=== PATIENT | male | born 1980 | race Caucasian/White ===

== ENCOUNTER 2023-04-02 14:23 | Emergency (ER) | payer OTHER ==
--- NOTE | 2023-04-02 14:47 | RAD REPORT ---
EXAM DESCRIPTION: RAD - Chest Single View - 04/02/2023 2:42 pm CLINICAL HISTORY: COUGH Chest pain. COMPARISON: <Comparisons> FINDINGS: Portable technique limits examination quality. The lungs are grossly clear. The heart is normal in size. No displaced fractures. IMPRESSION: No acute intrathoracic process suspected.
--- OUTSIDE RECORDS SUMMARY | 2023-04-02 14:51 | XMS REPORT | Continuity of Care Document ---
:1980 Author Organization [facility] t Address [address] [facility] [place] [address] Care Team Providers Name Role Phone Pcp, Patient Does Not Have A Primary Care Physician [phone] Doctor Unassigned, [place] Attending Clinician Unavailable Only, Ang Db Test Attending Clinician Unavailable Lorie Morales MD Attending Clinician LUCINDA PARKER Attending Clinician Unavailable Problems Condition Condition Condition Status Onset Resolution Last Treating Co mments Source Name Details Category Date Date Treatment Clinician Date No known No known Disease Unive rs active active ity of problems problems [facility] Allergies, Adverse Reactions, Alerts Allergy Allergy Status Severity Reaction(s) Onset Inactive Treating Comm ents Source Name Type Date Date Clinician NO KNOWN [facility]ergy Active [facility] Social History Social Habit Start Date Stop Date Quantity Comments Source Exposure to Not sure University of SARS-CoV-2 [facility] (event) Branch History of Smokes tobacco [facility] use daily [facility] Tobacco use and 2021-02-23 2021-02-23 Smokeless [address] [facility] exposure [facility]:00:00 non-user [facility] Center Alcohol intake 2021-02-23 2021-02-23 Ex-drinker [facility] 00:[facility]00 00:00:00 (finding) [facility] [place] Alcohol Comment 2021-02-23 2021-02-[address] [facility] 00:00:00 [facility]00 [facility] Center Sex Assigned At [birth year] [facility] 00:[facility]00 [facility] Center Smoking Status Start Date Stop Date Source Never smoker [facility] Smokes tobacco daily 2021-02-23 00:00:00 [facility] Medications Ordered Filled Start Stop Current Ordering Indication Dosage Frequency Signature Comments Components Source Medication Medication Date Date Medication? Clinician (SIG) Name Name Sulfacetami 2013-10 Yes [id number] Apply to Univers de 0-24 area(s) 2 ity of Sodium-Sulf 00:00: (two) [place] ur 00 times Medical (PLEXION) daily. Branch 10-5 % (w/w) Clsr adapalene 2013-10 Yes [id number] Apply to Univers (DIFFERIN) 0-24 affected ity o f 0.1 % cream 00:00: area(s) [place] 00 every Medical evening. Branch clindamycin 2013-10 Yes [id number] Apply to Univers (CLEOCIN T) 0-24 affected ity of 1 % 00:00: area(s) 2 [place] solution 00 (two) Medical times Branch daily. Sulfacetami 2013-10 Yes [id number] Apply to Univers de 0-24 area(s) 2 ity of Sodium-Sulf 00:00: (two) [place] ur 00 times Medical (PLEXION) daily. Branch 10-5 % (w/w) Clsr adapalene 2013-10 Yes [id number] Apply to Univers (DIFFERIN) 0-24 affected ity o f 0.1 % cream 00:00: area(s) [place] 00 every Medical evening. Branch clindamycin 2013-10 Yes [id number] Apply to Univers (CLEOCIN T) 0-24 affected ity of 1 % 00:00: area(s) 2 [place] solution 00 (two) Medical times Branch daily. clindamycin Yes [id number] Apply to Univers -tretinoin 08 area(s) at ity of (ZIANA) gel 00:00: bedtime. x[place] Medical Branch doxycycline Yes [id number] 100mg Take 1 Tab Univers (AVIDOXY) 07-06 by mouth 2 ity of 100 mg 00:00: (two) [place] tablet 00 times Medical daily. Branch clindamycin Yes [id number] Apply to Univers -tretinoin 07-06 area(s) at ity of (ZIANA) gel 00:00: [place]time. [place] 00 [facility] doxycycline Yes [id number] 100mg Take 1 Tab Univers (AVIDOXY) 07-06 by mouth 2 ity of 100 mg 00:00: (two) [place] tablet 00 times Medical daily. Branch clindamycin Yes [id number] Apply to Univers (CLEOCIN T) 7-30 face, back it y of 1 % lotion 00:00: and chest [place] 00 QAM Medical Branch clindamycin Yes [id number] Apply to Univers (CLEOCIN T) 7-30 face, back it y of 1 % lotion 00:00: and chest [place] 00 QAM Medical Branch Vital Signs Vital Name Observation Time Observation Value Comments Source HEIGHT 2021-02-23 11:59:00 182.9 cm WEIGHT 2021-02-23 11:59:00 88.451 kg HEIGHT 2021-02-23 11:59:00 182.9 cm WEIGHT 2021-02-23 11:59:00 88.451 kg Procedures Procedure Date / Time Performing Clinician Source Performed AUTHORIZATION FOR 2022-02-17 05:01:00 Doctor Unassigned, No Univ [facility] RELEASE OF PHI Name Medical Branch Plan of Care Planned Activity Planned Date Details Comments Source Future Scheduled 2023-06-[address] [facility] Test 00:00:00 (Season Ended) [code = [facility] INFLUENZA VACCINE (Season Ended)] Future Scheduled 2022-10-[address] [facility] Test 00:00:00 (12+) [code = [facility] DEPRESSION SCREENING (12+)] Future Scheduled 2022-02-[address] [facility] Test 00:00:00 Counseling and Medical Cent[facility] r Screening (12+) [code = Tobacco Cessation Counseling and Screening (12+)] Future Scheduled [address] [facility] Test 00:00:00 (procedure) [code = [facility] [id number]] Future Scheduled 1999 DTAP/TDAP/TD VACCINES [facility] Test 00:00:00 (1 - Tdap) [code = Medical C enter DTAP/TDAP/TD VACCINES (1 - Tdap)] Future Scheduled 1998 HEPATITIS C SCREENING [facility] Test 00:00:00 [code = HEPATITIS C Medical Center SCREENING] Future Scheduled [address] [facility] Test 00:00:00 0-64 YRS (1 - PCV) Medical C enter [code = PNEUMOCOCCAL VACCINE 0-64 YRS (1 - PCV)] Future Scheduled 1980 COVID-19 VACCINE (#1) [facility] Test 00:00:00 [code = COVID-[address] VACCINE (#1)] Encounters Start End Encounter Admission Attending Care Care Encounter Source Date/Time Date/Time Type Type Clinicians Facility Department ID 2022-02-17 2022-02-17 Orders Doctor KANDACE [id number] Univers 00:00:00 00:00:00 Only Unassigned, TAMERA [id number] ity of [place] [facility] [id number] [place] as [phone] [address] 2021-11-22 2021-11-22 Laboratory Only, Ang Db Test [facility] [id number] [facility] 12:30:00 12:33:59 Only [facility] [id number] ity of [place] [id number] Nico as DAYSI?BLEA [phone] [address] MEDICAL OFFICE BUILDING 2021-02-23 2021-02-23 Emergency ER [facility] Emergency [id number] [facility] 11:39:00 11:39:00 Results Test Description Test Time Test Comments Results Result Comments Source RAPID DRUG SCREEN, URINE 2021-02-23 15:32:00 Test Item Value Reference Range Interpretation Comme nts BARBITURATE URINE (BEAKER) (test code = 725) Negative Negative BENZODIAZEPINE SCREEN URINE (BEAKER) (test code = 726) Positive Negative A COCAINE (METAB.) SCREEN (BEAKER) (test code = 1164) Negative Ne gative METHADONE SCREEN (BEAKER) (test code = 1436) Negative Negative OPIATE SCREEN URINE (BEAKER) (test code = 734) Negative Negativ e CANNABINOID SCREEN URINE (BEAKER) (test code = 727) Negative Ne gative AMPH/METHAMPH SCREEN (BEAKER) (test code = 1438) Negative Negat ashlyn PHENCYCLIDINE SCREEN URINE (BEAKER) (test code = 608) Negative Negative PH UA (BEAKER) (test code = 467) 9.0 5.0-8.0 H DRUG CUTOFF CONC.Cocaine 300 ng/mL Cannabinoid 50 ng/mLBenzodiazepine 200 ng/mLBarbiturate 200 ng/mLPhencyclidine 25 ng/mLOpiate 300 ng/mLMethadone 300 ng/mLAmphetamine/ 1000 ng/mL MethamphetamineThis assay provides an unconfirmed qualitative test result for the clinical management of patients in emergency situations. Chain of custody not maintained. Some ryxm-ezq-wadrhcy medications, as well as adulterants, may cause inaccurate results. Clinical correlation should be applied. A more comprehensivedrug screen or confirmation of a detected drug may be performed upon request.Manager Storage ID - ZMINESALICYLATE [id number] 15:32:00 Test Item Value Reference Range Interpretation Comments SALICYLATE LEVEL (BEAKER) (test code < mg/dL 20.0-30.0 L = 764) Manager Storage ID - ZMINECOMPREHENSIVE METABOLIC [id number] 15:31:00 Test Item Value Reference Range Interpretation Comments TOTAL PROTEIN 7.3 gm/dL 6.0-8.5 (BEAKER) (test code = 770) ALBUMIN (BEAKER) 4.6 g/dL 3.5-5.0 (test code = 1145) ALKALINE PHOSPHATASE 60 U/L 30-115 (BEAKER) (test code = 346) BILIRUBIN TOTAL 0.8 mg/dL 0.1-1.3 (BEAKER) (test code = 377) SODIUM (BEAKER) (test 140 meq/L 135-148 code = 381) POTASSIUM (BEAKER) 4.3 meq/L 3.5-5.5 (test code = 379) CHLORIDE (BEAKER) 104 meq/L 98-106 (test code = 382) CO2 (BEAKER) (test 28 meq/L 20-31 code = 355) BLOOD UREA NITROGEN 17 mg/dL 10-26 (BEAKER) (test code = 354) CREATININE (BEAKER) 1.02 mg/dL 0.50-1.20 (test code = 358) GLUCOSE RANDOM 101 mg/dL 70-110 (BEAKER) (test code = 652) CALCIUM (BEAKER) 9.5 mg/dL 8.5-10.5 (test code = 697) AST (SGOT) (BEAKER) 22 U/L 5-40 (test code = 353) ALT (SGPT) (BEAKER) 33 U/L 6-50 (test code = 347) EGFR (BEAKER) (test 81 mL/min/1.73 ESTIMA CARLOS EDUARDO GFR IS code = 1092) sq m NOT ACCURATE CREATININE CLEARANCE IN PREDICTING GLOMERULAR FILTRATION RATE . ESTIMATED GFR I S NOT APPLICABLE FOR DIALYSIS PATIEN TS. Manager Storage ID - [id number] 15:28:00 Test Item Value Reference Range Interpretation Comments ETHANOL (BEAKER) < mg/dL See_Comment [Automated message] The (test code = 400) system whi [employer] generated this result tra nsmitted reference range : <=10. The reference r ramila was not used to int erpret this result as normal/abnormal . Manager Storage ID - ZMINEURINALYSIS W/ [id number] 15:27:00 Test Item Value Reference Range Interpretation Comments COLOR (BEAKER) (test code = 470) Light Yellow CLARITY (BEAKER) (test code = Clear 469) SPECIFIC GRAVITY UA (BEAKER) 1.008 1.001-1.035 (test code = 468) PH UA (BEAKER) (test code = 467) 9.0 5.0-8.0 H PROTEIN UA (BEAKER) (test code = Negative Negative 464) GLUCOSE UA (BEAKER) (test code = Negative Negative 365) KETONES UA (BEAKER) (test code = Negative Negative 371) BILIRUBIN UA (BEAKER) (test code Negative Negative = 462) BLOOD UA (BEAKER) (test code = Negative Negative 461) NITRITE UA (BEAKER) (test code = Negative Negative 465) LEUKOCYTE ESTERASE UA (BEAKER) Negative Negative (test code = 466) UROBILINOGEN UA (BEAKER) (test < mg/dL 0.2-1.0 code = 463) RBC UA (BEAKER) (test code = < /HPF 519) WBC UA (BEAKER) (test code = 1 /HPF 520) SOURCE(BEAKER) (test code = 2795) Manager Storage ID - [auto]Manager Storage ID - [auto]ACETAMINOPHEN [id number] 15:27:00 Test Item Value Reference Range Interpretation Comments ACETAMINOPHEN LEVEL (BEAKER) (test < ug/mL 10.0-30.0 L code = 344) Manager Storage ID - ZMINECBC W/PLT COUNT & AUTO [id number] 15:04:00 Test Item Value Reference Range Interpretation Comments WHITE BLOOD CELL COUNT (BEAKER) 8.9 K/ L 4.0-10.0 (test code = 775) RED BLOOD CELL COUNT (BEAKER) 4.65 M/ L 4.20-5.80 (test code = 761) HEMOGLOBIN (BEAKER) (test code = 15.1 GM/DL 13.0-16.8 410) HEMATOCRIT (BEAKER) (test code = 42.3 % 36.0-50.0 411) MEAN CORPUSCULAR VOLUME (BEAKER) 91.0 fL 82.0-99.0 (test code = 753) MEAN CORPUSCULAR HEMOGLOBIN 32.5 pg 27.0-33.0 (BEAKER) (test code = 751) MEAN CORPUSCULAR HEMOGLOBIN CONC 35.7 GM/DL 32.0-36.0 (BEAKER) (test code = 752) RED CELL DISTRIBUTION WIDTH 12.5 % 12.0-15.0 (BEAKER) (test code = 412) PLATELET COUNT (BEAKER) (test 285 K/CU MM 150-430 code = 756) MEAN PLATELET VOLUME (BEAKER) 9.7 fL 6.0-11.5 (test code = 754) NUCLEATED RED BLOOD CELLS 0 /100 WBC 0-0 (BEAKER) (test code = 413) NEUTROPHILS RELATIVE PERCENT 73 % (BEAKER) (test code = 429) LYMPHOCYTES RELATIVE PERCENT 19 % (BEAKER) (test code = 430) MONOCYTES RELATIVE PERCENT 6 % (BEAKER) (test code = 431) EOSINOPHILS RELATIVE PERCENT 0 % (BEAKER) (test code = 432) BASOPHILS RELATIVE PERCENT 1 % (BEAKER) (test code = 437) NEUTROPHILS ABSOLUTE COUNT 6.50 K/ L 1.80-8.00 (BEAKER) (test code = 670) LYMPHOCYTES ABSOLUTE COUNT 1.69 K/ L 1.48-4.50 (BEAKER) (test code = 414) MONOCYTES ABSOLUTE COUNT (BEAKER) 0.55 K/ L 0.00-1.30 (test code = 415) EOSINOPHILS ABSOLUTE COUNT 0.02 K/ L 0.00-0.50 (BEAKER) (test code = 416) BASOPHILS ABSOLUTE COUNT (BEAKER) 0.05 K/ L 0.00-0.20 (test code = 417) IMMATURE GRANULOCYTES-RELATIVE 1 % 0-0 H PERCENT (BEAKER) (test code = 2801)
--- NOTE | 2023-04-02 15:21 | RAD REPORT ---
EXAM DESCRIPTION: US - Extrem Venous W Compress Rohit - 04/02/2023 3:15 pm CLINICAL HISTORY: Pain;Swelling Bilateral leg edema and swelling. COMPARISON: No comparisons TECHNIQUE: Real-time sonographic interrogation of the left and right lower extremity deep venous sys tems was performed. FINDINGS: Normal compressibility, flow augmentation, phasic flow and spontaneous flow is identified in both the left and right lower extremity deep venous systems. IMPRESSION: No sonographic evidence of left or right lower extremity deep venous thrombosis.
[2023-04-02] MEDS ORDERED: NA CHLORIDE 0.9% 1,000 ML ONE (15:37)
[2023-04-02 15:56] LABS: Absolute Lymphocytes (CBC) 1.1 K/uL (0.7-4.9); Hematocrit 37.8 % (39.6-49.0); Lymphocytes % 15.9 % (15.3-44.8); MCV 93.4 fL (80-100); MPV 7.7 fL (7.6-11.3); RBC Red Blood Cell Count 4.05 M/uL (4.33-5.43)
[2023-04-02 16:08] LABS: Albumin 3.5 g/dL (3.4-5.0); Bilirubin Total 0.3 mg/dL (0.2-1.0); Potassium 4.3 mEq/L (3.5-5.1); Protein, Total 7.4 g/dL (6.4-8.2)
[2023-04-02 16:26] LABS: Protime INR 0.93
[2023-04-02] MEDS ORDERED: LIDOCAINE 1% W/EPI 1:100,000 50 ML MDV ONE (16:36)
--- NOTE | 2023-04-02 16:39 | EDPHYS ---
Physician Documentation [facility] Name: Harvinder Hallman Age: 42 yrs Sex: Male : 1980 Arrival Date: 04/02/2023 Time: 14:23 Bed 6 Private MD: ED Physician [place] HPI: 04/02 16:32 This 42 yrs old Male presents to ER via Ambulatory with complaints of Leg ced Swelling, Insect Bite. 16:32 The patient presents with an abscess of the right knee. Description: The affected area ced is small, moderate sized, confluent, draining, erythematous, fluctuant, raised, swollen. Onset: The symptoms/episode began/occurred 3 day(s) ago. Possible cause(s): fire ant bite. Associated signs and symptoms: Pertinent positives: drainage, erythema, swelling. Modifying factors: the symptoms are alleviated by nothing, the symptoms are aggravated by nothing. Severity of symptoms: At their worst the symptoms were moderate, in the emergency department the symptoms are unchanged. The patient has not experienced similar symptoms in the past. Historical: - Allergies: 14:44 No Known Allergies; mb9 - Immunization history:: Adult Immunizations up to date. - Social history:: Smoking status: . - Family history:: not pertinent. ROS: 16:32 Constitutional: Negative for fever, chills, and weight loss, Eyes: Negative for injury, ced pain, redness, and discharge, ENT: Negative for injury, pain, and discharge, Neck: Negative for injury, pain, and swelling, Cardiovascular: Negative for chest pain, palpitations, and edema, Respiratory: Negative for shortness of breath, cough, wheezing, and pleuritic chest pain, Abdomen/GI: Negative for abdominal pain, nausea, vomiting, diarrhea, and constipation, Back: Negative for injury and pain, : Negative for injury, bleeding, discharge, and swelling, Skin: Negative for injury, rash, and discoloration, Neuro: Negative for headache, weakness, numbness, tingling, and seizure, Psych: Negative for depression, anxiety, suicide ideation, homicidal ideation, and hallucinations, Allergy/Immunology: Negative for hives, rash, and allergies, Endocrine: Negative for neck swelling, polydipsia, polyuria, polyphagia, and marked weight changes, Hematologic/Lymphatic: Negative for swollen nodes, abnormal bleeding, and unusual bruising. 16:32 MS/extremity: Positive for decreased range of motion, erythema, pain, swelling, tenderness, of the right knee. Exam: 16:32 Constitutional: This is a well developed, well nourished patient who is awake, alert, ced and in no acute distress. Head/Face: Normocephalic, atraumatic. Eyes: Pupils equal round and reactive to light, extra-ocular motions intact. Lids and lashes normal. Conjunctiva and sclera are non-icteric and not injected. Cornea within normal limits. Periorbital areas with no swelling, redness, or edema. ENT: Nares patent. No nasal discharge, no septal abnormalities noted. Tympanic membranes are normal and external auditory canals are clear. Oropharynx with no redness, swelling, or masses, exudates, or evidence of obstruction, uvula midline. Mucous membranes moist. Neck: Trachea midline, no thyromegaly or masses palpated, and no cervical lymphadenopathy. Supple, full range of motion without nuchal rigidity, or vertebral point tenderness. No Meningismus. Chest/axilla: Normal chest wall appearance and motion. Nontender with no deformity. No lesions are appreciated. Cardiovascular: Regular rate and rhythm with a normal S1 and S2. No gallops, murmurs, or rubs. Normal PMI, no JVD. No pulse deficits. Respiratory: Lungs have equal breath sounds bilaterally, clear to auscultation and percussion. No rales, rhonchi or wheezes noted. No increased work of breathing, no retractions or nasal flaring. Abdomen/GI: Soft, non-tender, with normal bowel sounds. No distension or tympany. No guarding or rebound. No evidence of tenderness throughout. Back: No spinal tenderness. No costovertebral tenderness. Full range of motion. Male : Normal genitalia with no discharge or lesions. Skin: Warm, dry with normal turgor. Normal color with no rashes, no lesions, and no evidence of cellulitis. Neuro: Awake and alert, GCS 15, oriented to person, place, time, and situation. Cranial nerves II-XII grossly intact. Motor strength 5/5 in all extremities. Sensory grossly intact. Cerebellar exam normal. Normal gait. Psych: Awake, alert, with orientation to person, place and time. Behavior, mood, and affect are within normal limits. 16:32 Musculoskeletal/extremity: ROM: intact in all extremities, full active range of motion, full passive range of motion, Circulation is intact in all extremities. Sensation intact. Compartment Syndrome exam of affected extremity: is normal. Weight bearing: able to fully bear weight, Tendon exam: specific tendon testing normal through active and passive range of motion Vital Signs: 14:41 BP 143 / 86; Pulse 94; Resp 16; Temp 98.2; Pulse Ox 100% ; Weight 91.63 kg; Height 6 mb9 ft. 4 in. ; Pain 7/10; 16:00 BP 120 / 77; Pulse 62; Resp 16; Pulse Ox 100% ; bp 17:47 BP 137 / 96; Pulse 87; Resp 16; Pulse Ox 100% ; bp 14:41 Body Mass Index 24.59 (91.63 kg, 193.04 cm) mb9 14:41 Pain Scale: Adult mb9 Procedures: 16:37 I \T\ D: Incision and drainage was performed for an abscess of the right Prepped with [facility] Betadine, Anesthetized with 10 ml's 1% Lidocaine w/ Epi. Incised with #11 blade. Drained purulent fluid. bloody fluid. Packed with iodoform gauze, Dressing: sterile 4x4 gauze, non-Adherent dressing, the patient tolerated the procedure well. MDM: 14:30 Patient medically screened. [facility] 16:35 Differential diagnosis: abscess, cellulitis, insect bite. Data reviewed: vital signs, [facility] nurses notes, lab test result(s), radiologic studies, doppler. Consideration of Admission/Observation Escalation of care including admission/observation considered. I considered the following discharge prescriptions or medication management in the emergency department Medications were administered in the Emergency Department. See MAR. Independent interpretation of the following test(s) in the Emergency Department Radiology Department Ultrasound: My interpretation is NO DVT. Test considered but Not performed: CT: NO CT. Care significantly affected by the following chronic conditions: NONE. Counseling: I had a detailed discussion with the patient and/or guardian regarding: the historical points, exam findings, and any diagnostic results supporting the discharge/admit diagnosis, lab results, radiology results, the need for outpatient follow up, for definitive care, a general surgeon. 04/02 14:31 Order name: CBC with Diff; Complete Time: 16:25 [facility] 04/02 14:31 Order name: Comprehensive Metabolic Panel; Complete Time: 16:25 [facility] 04/02 14:31 Order name: PT-INR [facility] 04/02 16:31 Order name: Wound Culture [facility] 04/02 14:31 Order name: US Extremity Venous W Compression Rohit; Complete Time: 16:25 [facility] 04/02 14:32 Order name: Chest Single View XRAY; Complete Time: 15:20 [facility] 04/02 17:20 Order name: XRAY Knee RIGHT 3 view aa5 04/02 16:31 Order name: Dressing - Wound; Complete Time: 16:34 [facility] 04/02 16:31 Order name: Gloves, Sterile; Complete Time: 16:45 [facility] 04/02 16:31 Order name: Setup Suture Tray; Complete Time: 16:34 [facility] Administered Medications: 15:44 Drug: NS 0.9% IV 1000 ml Route: IV; Rate: 125 ml/hr; Site: right forearm; bp 17:43 Follow up: IV Status: Completed infusion; IV Intake: 500ml bp 16:34 Drug: Lidocaine-Epinephrine Infiltration -1%: (1:100,000) 10 ml Volume: 20 ml; Route: bp Infiltration; 16:45 Drug: Doxycycline PO 200 mg Route: PO; bp 17:42 Follow up: Response: No adverse reaction bp 16:45 Drug: Trimethoprim-Sulfamethoxazole PO (160 mg-800 mg (DS) 1 tablet Route: PO; bp 17:42 Follow up: Response: No adverse reaction bp 16:45 Drug: Mupirocin Topical Ointment 2 % 1 application Route: Topical; Site: affected area; bp 17:42 Not Given (Physician Discretion): Tetanus Toxoid,Adsorbed IM 0.5 ml IM once; Provide bp Vaccine Information Statement (VIS). Disposition Summary: 04/02/23 16:39 Discharge Ordered Location: Home ced Problem: new ced Symptoms: have improved ced Condition: Stable ced Diagnosis - Cutaneous abscess of limb, unspecified - RIGHT KNEE ced - Cellulitis and acute lymphangitis of other parts of limb ced Followup: ced - With: Private Physician - When: 2 - 3 days - Reason: Recheck today's complaints, Continuance of care, Re-evaluation by your physician Followup: ced - With: Carlos Helton MD - When: 2 - 3 days - Reason: Recheck today's complaints, Re-evaluation by your physician Discharge Instructions: - Discharge Summary Sheet ced - Skin Abscess ced - Incision and Drainage ced - Skin Abscess, [id number] ced - Incision and Drainage, Care After ced Forms: - Medication Reconciliation Form ced - Thank You Letter ced - Antibiotic Education ced - Prescription Opioid Use ced - Work release form aa5 Prescriptions: - Centany 2 % Topical ointment - apply 1 application by TOPICAL route 4 times per day; 22 gram tube; Refills: 0, [facility] Product Selection Permitted - acetaminophen-codeine 300-30 mg Oral tablet - take 2 tablet by ORAL route every 6 hours as needed for pain; 20 tablet; ced Refills: 0, Product Selection Permitted - Doxycycline Hyclate 100 mg Oral Tablet - take 1 tablet by ORAL route every 12 hours; 20 tablet; Refills: 0, Product [facility] Selection Permitted - Bactrim DS 800-160 mg Oral Tablet - take 1 tablet by ORAL route every 12 hours for 10 days; 20 tablet; Refills: 0, ced Product Selection Permitted Signatures: Dispatcher [employer] Pacheoc Gamino MD MD cha Peltier, Brian, RN RN Holley Roper RN RN mb9
--- NOTE | 2023-04-02 16:39 | ER ---
Nurse's Notes [facility] Name: Harvinder Hallman Age: 42 yrs Sex: Male : 1980 Arrival Date: 04/02/2023 Time: 14:23 Bed 6 Private MD: Diagnosis: Cutaneous abscess of limb, unspecified-RIGHT KNEE;Cellulitis and acute lymphangitis of other parts of limb Presentation: 04/02 14:41 Chief complaint: Abscess on right knee x 4 days. Coronavirus screen: At this time, the mb9 client does not indicate any symptoms associated with coronavirus-19. Ebola Screen: No symptoms or risks identified at this time. Initial Sepsis Screen: Does the patient meet any 2 criteria? No. Patient's initial sepsis screen is negative. Does the patient have a suspected source of infection? No. Patient's initial sepsis screen is negative. Risk Assessment: Do you want to hurt yourself or someone else? Patient reports no desire to harm self or others. Onset of symptoms was March 29, 2023. 14:41 Method Of Arrival: Ambulatory [facility] 14:41 Acuity: KATHRYN 3 mb9 Triage Assessment: 14:45 Bite description: bite sustained to right knee by an unknown animal, animal bp information: vaccination(s) is not applicable. General: Appears uncomfortable, Behavior is calm, cooperative, appropriate for age. Pain: Complains of pain in right knee. EENT: No deficits noted. Neuro: No deficits noted. Cardiovascular: No deficits noted. Respiratory: No deficits noted. GI: No signs and/or symptoms were reported involving the gastrointestinal system. : No signs and/or symptoms were reported regarding the genitourinary system. Derm: Abscess located on right knee. Musculoskeletal: No deficits noted. Historical: - Allergies: 14:44 No Known Allergies; mb9 - Immunization history:: Adult Immunizations up to date. - Social history:: Smoking status: . - Family history:: not pertinent. Screenin:45 [facility] ED Fall Risk Assessment (Adult) History of falling in the last 3 months, bp including since admission No falls in past 3 months (0 pts). Abuse screen: Denies threats or abuse. Denies injuries from another. Nutritional screening: No deficits noted. Tuberculosis screening: No symptoms or risk factors identified. Assessment: 14:45 General: SEE TRIAGE NOTE. bp 16:30 Pain: Complains of pain in right knee. Derm: Skin R KNEE DRAINING ABSCESS Skin is pink, bp warm \T\ dry. 17:44 Reassessment: DC ON HOLD FOR XRAY. bp Vital Signs: 14:41 BP 143 / 86; Pulse 94; Resp 16; Temp 98.2; Pulse Ox 100% ; Weight 91.63 kg; Height 6 mb9 ft. 4 in. ; Pain 7/10; 16:00 BP 120 / 77; Pulse 62; Resp 16; Pulse Ox 100% ; bp 17:47 BP 137 / 96; Pulse 87; Resp 16; Pulse Ox 100% ; bp 14:41 Body Mass Index 24.59 (91.63 kg, 193.04 cm) mb9 14:41 Pain Scale: Adult mb9 ED Course: 14:25 Patient arrived in ED. am2 14:30 Pacheco Villa MD is Attending Physician. ced 14:41 Patient's name was called from ER lobby. No response. mb9 14:43 Chest Single View XRAY In Process Unspecified. EDMS 14:44 Triage completed. mb9 14:44 Arm band placed on. mb9 15:17 US Extremity Venous W Compression Rohit In Process Unspecified. EDMS 15:21 Carlos Us, RN is Primary Nurse. bp 15:44 Inserted saline lock: 20 gauge in right forearm, using aseptic technique. Blood bp collected. 16:38 Carlos Helton MD is Referral Physician. ced 17:39 Wound Culture Sent. ko1 17:43 Assist provider with I \T\ D: of an abscess on right KNEE Set up I\T\D tray. Performed by bp Pacheco Villa MD Culture sent to lab. Wound packed. iodoform gauze, Dressing with 4X4s, Patient tolerated well. IV discontinued, intact, bleeding controlled, No redness/swelling at site. Pressure dressing applied. 17:45 Patient has correct armband on for positive identification. Bed in low position. Call bp light in reach. Side rails up X2. Adult w/ patient. 17:56 XRAY Knee RIGHT 3 view In Process Unspecified. EDMS Administered Medications: 15:44 Drug: NS 0.9% IV 1000 ml Route: IV; Rate: 125 ml/hr; Site: right forearm; bp 17:43 Follow up: IV Status: Completed infusion; IV Intake: 500ml bp 16:34 Drug: Lidocaine-Epinephrine Infiltration -1%: (1:100,000) 10 ml Volume: 20 ml; Route: bp Infiltration; 16:45 Drug: Doxycycline PO 200 mg Route: PO; bp 17:42 Follow up: Response: No adverse reaction bp 16:45 Drug: Trimethoprim-Sulfamethoxazole PO (160 mg-800 mg (DS) 1 tablet Route: PO; bp 17:42 Follow up: Response: No adverse reaction bp 16:45 Drug: Mupirocin Topical Ointment 2 % 1 application Route: Topical; Site: affected area; bp 17:42 Not Given (Physician Discretion): Tetanus Toxoid,Adsorbed IM 0.5 ml IM once; Provide bp Vaccine Information Statement (VIS). Intake: 17:43 IV: 500ml; Total: 500ml. bp Outcome: 16:39 Discharge ordered by MD. coughlin 18:24 Patient left the ED. bp Signatures: Dispatcher [employer] EDMS Pacheco Villa MD MD cha Moreno, Amanda am2 Carlos Us, RN RN bp Selin Hedrick RN RN ko1 Holley Cedillo RN RN mb9
[2023-04-02] MEDS ORDERED: DOXYCYCLINE 100 MG CAP PO ONE (16:47)
[2023-04-02] MEDS ORDERED: SMZ./TMP. 800/160 MG TABLET ONE (16:47)
[2023-04-02] MEDS ORDERED: MUPIROCIN 2% OINT 22GM TUBE TOP ONE (16:47)
--- NOTE | 2023-04-02 18:06 | RAD REPORT ---
EXAM DESCRIPTION: RAD - Knee Right 3 View - 04/02/2023 5:54 pm CLINICAL HISTORY: SWELLING COMPARISON: No comparisons FINDINGS: Moderate soft tissue swelling is seen anterior tibia superiorly. There is high density mat erial in the soft tissues anterior to the tibial tubercle. This may be related to packing material or calcifications. No fracture or aggressive marrow lesion. No finding to indicate osteomyelitis.
[2023-04-02 18:30] VITALS: TEMP 98.2; O2SAT 100
[2023-04-02 18:33] VITALS: BP 137/96
== END 2023-04-02 18:24 | disposition home or self-care (01) ==
LOC: ER 14:23
PROC: 0H9KXZZ Drainage of Right Lower Leg Skin, External Approach (ICD-10-PCS; principal; 2023-04-02)
DX: L03.115 Cellulitis of right lower limb (principal); L03.125 Acute lymphangitis of right lower limb
CPT/HCPCS: 96361; 87070; 85025; 36415; 87205; 85610; 80053; 71045; 73562; 93970; 96360; 99284; 10060; J7030; 87077; 87186